=== PATIENT | male | born 1965 | race Caucasian/White ===

== ENCOUNTER → 2018-09-15 | Outpatient (CLI) | payer BC, SELFPAY ==
--- NOTE | 2018-09-15 10:29 | COLBX_PTH ---
PATIENT: HALEY RAMACHANDRAN LOC: [facility] U#:[id number] AGE/SX: 52/M ROOM: RE09/15/[address]: Dr. Andrew Barron MD : [id number] BED: DIS: 09/15/2018 SPEC #: [id number] RECD: 09/15/18 15:39 STATUS: KEVIN MITCHELL #: [id number] PATRICK: 09/15/18 10:[address]: Andrew Barron DEPT: SURGICAL PATHOLOGY RECD BY: Hi Fong ENTERED: 09/18/18 08:53 SP TYPE: COLON BX OTHR DR: CARLOTTA Tissues: Sigmoid colon biopsy Procedures: Surgery Specimen Level IV HEADER OPERATION: Colonoscopy with biopsy PRE-OP DIAGNOSIS: Screening colonoscopy TISSUE SUBMITTED: Sigmoid biopsy, rule out adenoma MICROSCOPIC DIAGNOSIS Sigmoid colon, biopsy: Fragments of hyperplastic polyp. SJ:[place] 09/19/18 MICROSCOPIC DESCRIPTION Slides are reviewed. GROSS DESCRIPTION Received in fixative is one container labeled with the patient's name and designated sigmoid biopsy. The specimen consists of multiple irregular fragments of zamora soft tissue that in aggregate measure 0.3 x 0.3 x 0.1 cm. The specimen is totally submitted in one cassette. / CE:[place] 09/18/18 TC:1 CPT: 30138
== END | disposition home or self-care (01) ==
PROVIDERS: Referring Provider Internal Medicine Gastroenterology; Visit Provider Internal Medicine Gastroenterology
DX: Z12.11 Encounter for screening for malignant neoplasm of colon (principal)
CPT/HCPCS: 88305